=== PATIENT | female | born 1995 | race African-American/Black ===

== ENCOUNTER 2016-07-17 10:56 | Observation (INO) | payer SELFPAY ==
[~2016-07-17] VITALS: Ht 172.7 cm; Wt 68.0 kg
[2016-07-17] MEDS ORDERED: Dextrose 5%/Lactated Ringer's 1,000 ML IV SCH ×2 (11:15→20:30)
[2016-07-17] MEDS ORDERED: DiphenhydrAMINE 50mg/ml Inj IVP ONE (11:15)
[2016-07-17 11:42] LABS: MEAN CORPUSCULAR HEMOGLOBIN 26.1 PG (27.0-31.0); MEAN CORPUSCULAR VOLUME 84 FL (80-99); MEAN PLATELET VOLUME 7.5 FL (6.5-10.1); PLATELET COUNT 267 K/UL (150-450); RED BLOOD COUNT 4.78 M/UL (4.20-5.40); RED CELL DISTRIBUTION WIDTH 15.2 % (11.6-14.8); WHITE BLOOD COUNT 4.2 K/UL (4.8-10.8)
[2016-07-17 11:56] LABS: ALANINE AMINOTRANSFERASE 9 U/L (3-33); ALBUMIN/GLOBULIN RATIO 1.4 (1.0-2.7); ANION GAP 15 (5-15); ASPARTATE AMINO TRANSFERASE 21 U/L (5-40); CALCIUM 9.3 mg/dL (8.6-10.2); CARBON DIOXIDE 23 mEQ/L (20-30); CHLORIDE 96 mEQ/L (98-107); CREATININE 0.9 mg/dL (0.5-0.9); GLOMERULAR FILTRATION RATE > 60 mL/min (>60); HEMOLYSIS 96; POTASSIUM 4.5 mEQ/L (3.4-4.9); SODIUM 134 mEQ/L (135-145); TOTAL PROTEIN 7.3 g/dL (6.6-8.7); TROPONIN I < 0.30 ng/mL (<=0.30)
[2016-07-17 12:12] LABS: ANISOCYTOSIS 1+; BAND NEUTROPHILS % (MANUAL) 0 % (0-8); BASOPHILS % (MANUAL) 0 % (0-2); EOSINOPHILS % (MANUAL) 0 % (0-3); HYPOCHROMASIA 1+; LYMPHOCYTES % (MANUAL) 26 % (20-45); NEUTROPHILS % (MANUAL) 64 % (45-75); PLATELET ESTIMATE ADEQUATE; PLATELET MORPHOLOGY NORMAL; TOTAL CELLS COUNTED 100
[2016-07-17 12:15] VITALS: BP 111/57
[2016-07-17] MEDS ORDERED: Pyridoxine 50mg tab ORAL ONE (12:15)
[2016-07-17] MEDS ORDERED: NKM (12:32)
--- NOTE | 2016-07-17 13:03 | Emergency Room Report ---
History of Present Illness General Chief Complaint: Flu Like Symptoms Source: Patient, EMS Present Illness HPI Patient is a 20-year-old female who presented after increased vomiting. Patient had multiple episodes of vomiting for the past 2 weeks. Patient stated that she had been and is approximately 8 weeks. She reported having prior history of similar episodes of prior . She has not seen an OB/ FLIGHT SURVEYOR. The patient reports prior history of cardiac arrhythmia. She reports having multiple similar episodes. She denies any abdominal pain. She denies any fever. Allergies: Coded Allergies: No Known Allergies (Unverified , 07/17/16) Patient History Past Medical History: see triage record Last Menstrual Period: nov : 1 Para: 1 Reviewed Nursing Documentation: PMH: Agreed, PSxH: Agreed Nursing Documentation-PMH Past Medical History: No History, Except For Hx Cardiac Problems: Yes - arrhytmia Review of Systems All Other Systems: negative except mentioned in HPI Physical Exam Vital Signs Date Time Temp Pulse Resp B/P Pulse Ox O2 Delivery O2 Flow Rate FiO2 07/17/16 10:54 98.2 73 20 118/73 100 Room Air Sp02 EP Interpretation: reviewed, normal General Appearance: normal inspection, well appearing, no apparent distress, alert, GCS 15, non-toxic Head: atraumatic ENT: normal ENT inspection, hearing grossly normal, normal voice Neck: normal inspection, full range of motion, supple, no bony tend Respiratory: normal inspection, lungs clear, normal breath sounds, no respiratory distress, no retraction, no wheezing Cardiovascular #1: regular rate, rhythm, no edema Gastrointestinal: normal inspection, normal bowel sounds, non tender, soft, no guarding, no hernia Genitourinary: no CVA tenderness Musculoskeletal: normal inspection, back normal, normal range of motion Neurologic: normal inspection, alert, oriented x3, responsive, automotive software engineer III-XII nml as tested, DTRs symmetric, speech normal Psychiatric: normal inspection, judgement/insight normal, mood/affect normal Skin: normal inspection, normal color, no rash Medical Decision Making Diagnostic Impression: Primary Impression: Hyperemesis gravidarum Additional Impression: Bigeminy ER Course Patient presented for vomiting. Differential diagnosis included was not limited to cardiac arrhythmia, dehydration, hyperemesis, cyclic vomiting syndrome among others.Because of complexity of patient's case laboratory testing and imaging studies were ordered.The patient started on threat monitoring analyst. She was noted to have bigeminy with a rate of [address] or T wave changes noted. The patient started on IV fluids. Patient was given IV Rocephin for what appeared to be urinary tract infection. Pelvic ultrasound was noted to show intrauterine with a estimated gestational EGA of 7 weeks with heart tone. Patient was given IV magnesium which seem to reduce the patient's episodes of bigeminy. Dr. Jimenez was contacted for back shoe operator and agreed to be primary. Dr. Owen was contacted for internal medicine consult. Dr. Owen stated he will arrange internal controls consultant. The patient will be admitted for telemetry monitoring and IV hydration Labs Test 07/17/16 11:30 White Blood Count 4.2 K/UL (4.8-10.8) Red Blood Count 4.78 M/UL (4.20-5.40) Hemoglobin 12.5 G/DL (12.0-16.0) Hematocrit 40.3 % (37.0-47.0) Mean Corpuscular Volume 84 FL (80-99) Mean Corpuscular Hemoglobin 26.1 PG (27.0-31.0) Mean Corpuscular Hemoglobin Concent 31.0 G/DL (32.0-36.0) Red Cell Distribution Width 15.2 % (11.6-14.8) Platelet Count 267 K/UL (150-450) Mean Platelet Volume 7.5 FL (6.5-10.1) Neutrophils (%) (Auto) % (45.0-75.0) Lymphocytes (%) (Auto) % (20.0-45.0) Monocytes (%) (Auto) % (1.0-10.0) Eosinophils (%) (Auto) % (0.0-3.0) Basophils (%) (Auto) % (0.0-2.0) Differential Total Cells Counted 100 Neutrophils % (Manual) 64 % (45-75) Lymphocytes % (Manual) 26 % (20-45) Monocytes % (Manual) 10 % (1-10) Eosinophils % (Manual) 0 % (0-3) Basophils % (Manual) 0 % (0-2) Band Neutrophils 0 % (0-8) Platelet Estimate Adequate Platelet Morphology Normal Hypochromasia 1+ Anisocytosis 1+ Sodium Level 134 mEQ/L (135-145) Potassium Level 4.5 mEQ/L (3.4-4.9) Chloride Level 96 mEQ/L (98-107) Carbon Dioxide Level 23 mEQ/L (20-30) Anion Gap 15 (5-15) Blood Urea Nitrogen 9 mg/dL (7-23) Creatinine 0.9 mg/dL (0.5-0.9) Estimat Glomerular Filtration Rate > 60 mL/min (>60) Glucose Level 85 mg/dL (74-106) Calcium Level 9.3 mg/dL (8.6-10.2) Total Bilirubin 0.6 mg/dL (0.0-1.2) Aspartate Amino Transf (AST/SGOT) 21 U/L (5-40) Alanine Aminotransferase (ALT/SGPT) 9 U/L (3-33) Alkaline Phosphatase 53 U/L (35-104) Troponin I < 0.30 ng/mL (<=0.30) Total Protein 7.3 g/dL (6.6-8.7) Albumin 4.3 g/dL (3.5-5.2) Globulin 3.0 g/dL Albumin/Globulin Ratio 1.4 (1.0-2.7) Human Chorionic Gonadotropin, Qual Positive EKG Diagnostic Results Rate: other - bigeminy rate 79 ST Segments: no acute changes Last Vital Signs Date Time Temp Pulse Resp B/P Pulse Ox O2 Delivery O2 Flow Rate FiO2 07/17/16 12:15 97.0 78 12 111/57 100 Room Air Status: unchanged Disposition: ADMITTED INPATIENT Condition: Serious Referrals: NOT CHOSEN IPA/,REFERRING (PCP) Zbigniew Saavedra Jul 17, 2016 13:03
[2016-07-17 13:31] LABS: APPEARANCE,URINE SLIGHTLY CLOUDY; KETONES,URINE 3+ (NEGATIVE); LEUKOCYTE ESTERASE ,URINE 2+ (NEGATIVE); NITRITE,URINE NEGATIVE (NEGATIVE); PH,URINE 7 (4.5-8.0); PROTEIN,URINE 2+ (NEGATIVE); UROBILINOGEN,URINE 4 MG/DL (0.0-1.0)
[2016-07-17 13:40] LABS: BACTERIA,URINE MODERATE /HPF; RBC,URINE 0-2 /HPF (0 - 2); SQUAMOUS EPITHELIAL CELL,UR FEW /LPF (NONE/OCC); WBC,URINE 15-20 /HPF (0 - 2)
[2016-07-17 14:05] VITALS: BP 107/58
[2016-07-17 15:04] VITALS: BP 94/55
[2016-07-17 16:15] VITALS: BP 101/61
[2016-07-17 17:12] VITALS: BP 106/63
--- NOTE | 2016-07-17 17:50 | Cardiac Electrophysiology PN ---
Subjective Subjective [id number] Objective Last 24 Hour Vital Signs Date Time Temp Pulse Resp B/P Pulse Ox O2 Delivery O2 Flow Rate FiO2 07/17/16 17:12 97.5 78 20 106/63 98 Room Air 07/17/16 16:15 97.7 82 16 101/61 100 Room Air 07/17/16 16:08 97.4 81 14 106/53 100 Room Air 07/17/16 15:04 97.4 86 14 94/55 100 Room Air 07/17/16 14:05 82 12 107/58 100 Room Air 07/17/16 12:15 97.0 78 12 111/57 100 Room Air 07/17/16 11:45 72 14 Room Air 07/17/16 10:54 98.2 73 20 118/73 100 Room Air Laboratory Tests Test 07/17/16 11:30 07/17/16 13:10 White Blood Count 4.2 K/UL (4.8-10.8) L Red Blood Count 4.78 M/UL (4.20-5.40) Hemoglobin 12.5 G/DL (12.0-16.0) Hematocrit 40.3 % (37.0-47.0) Mean Corpuscular Volume 84 FL (80-99) Mean Corpuscular Hemoglobin 26.1 PG (27.0-31.0) L Mean Corpuscular Hemoglobin Concent 31.0 G/DL (32.0-36.0) L Red Cell Distribution Width 15.2 % (11.6-14.8) H Platelet Count 267 K/UL (150-450) Mean Platelet Volume 7.5 FL (6.5-10.1) Neutrophils (%) (Auto) % (45.0-75.0) Lymphocytes (%) (Auto) % (20.0-45.0) Monocytes (%) (Auto) % (1.0-10.0) Eosinophils (%) (Auto) % (0.0-3.0) Basophils (%) (Auto) % (0.0-2.0) Differential Total Cells Counted 100 Neutrophils % (Manual) 64 % (45-75) Lymphocytes % (Manual) 26 % (20-45) Monocytes % (Manual) 10 % (1-10) Eosinophils % (Manual) 0 % (0-3) Basophils % (Manual) 0 % (0-2) Band Neutrophils 0 % (0-8) Platelet Estimate Adequate Platelet Morphology Normal Hypochromasia 1+ Anisocytosis 1+ Sodium Level 134 mEQ/L (135-145) L Potassium Level 4.5 mEQ/L (3.4-4.9) Chloride Level 96 mEQ/L (98-107) L Carbon Dioxide Level 23 mEQ/L (20-30) Anion Gap 15 (5-15) Blood Urea Nitrogen 9 mg/dL (7-23) Creatinine 0.9 mg/dL (0.5-0.9) Estimat Glomerular Filtration Rate > 60 mL/min (>60) Glucose Level 85 mg/dL (74-106) Calcium Level 9.3 mg/dL (8.6-10.2) Total Bilirubin 0.6 mg/dL (0.0-1.2) Aspartate Amino Transf (AST/SGOT) 21 U/L (5-40) Alanine Aminotransferase (ALT/SGPT) 9 U/L (3-33) Alkaline Phosphatase 53 U/L (35-104) Troponin I < 0.30 ng/mL (<=0.30) Total Protein 7.3 g/dL (6.6-8.7) Albumin 4.3 g/dL (3.5-5.2) Globulin 3.0 g/dL Albumin/Globulin Ratio 1.4 (1.0-2.7) Human Chorionic Gonadotropin, Qual Positive Human Chorionic Gonadotropin, Quant 11650 mIU/mL Urine Color Yellow Urine Appearance Slightly cloudy Urine pH 7 (4.5-8.0) Urine Specific Baker 1.005 (1.005-1.035) Urine Protein 2+ (NEGATIVE) H Urine Glucose (UA) Negative (NEGATIVE) Urine Ketones 3+ (NEGATIVE) H Urine Occult Blood Negative (NEGATIVE) Urine Nitrite Negative (NEGATIVE) Urine Bilirubin Negative (NEGATIVE) Urine Urobilinogen 4 MG/DL (0.0-1.0) H Urine Leukocyte Esterase 2+ (NEGATIVE) H Urine RBC 0-2 /HPF (0 - 2) Urine WBC 15-20 /HPF (0 - 2) H Urine Squamous Epithelial Cells Few /LPF (NONE/OCC) Urine Bacteria Moderate /HPF (NONE) H Urine HCG, Qualitative Positive Urine Opiates Screen Negative (NEGATIVE) Urine Barbiturates Screen Negative (NEGATIVE) Phencyclidine (PCP) Screen Negative (NEGATIVE) Urine Amphetamines Screen Negative (NEGATIVE) Urine Benzodiazepines Screen Negative (NEGATIVE) Urine Cocaine Screen Negative (NEGATIVE) Urine Marijuana (THC) Screen Negative (NEGATIVE) CAM IBRAHIM Jul 17, 2016 17:50
[2016-07-17 18:31] LABS: MAGNESIUM 1.9 mg/dL (1.7-2.5); PHOSPHORUS 3.9 mg/dL (2.5-4.8)
[2016-07-17 20:00] VITALS: BP_SYST 106; BP_SYST 110; BP_DIAS 56; BP_DIAS 63
[2016-07-17] MEDS ORDERED: NS 55ml IV ONE (20:49)
--- NOTE | 2016-07-18 00:18 | Consultation ---
DATE OF CONSULTATION: CARDIOLOGY CONSULTATION REFERRING PHYSICIAN: Annabelle Owen M.D. REASON FOR CONSULTATION: Cardiac arrhythmias. HISTORY OF PRESENT ILLNESS: The patient is a 20-year-old female, who is 7 weeks , reports that the patient has increased vomiting and weakness that has been going on for the last couple of weeks. The patient reported that she has had similar episodes during her prior . The patient also has history of cardiac arrhythmia as well, but she does not take medication. The patient was admitted and the patient came to the emergency room, on telemetry was found to be in ventricular bigeminy, primarily her right ventricular outflow tract. Cardiology consultation was obtained for further evaluation and management. In the emergency room, the patient's blood pressure was 118/73 with a pulse of 73. PAST MEDICAL HISTORY: History of cardiac arrhythmia. SOCIAL HISTORY: She does not smoke or drink alcohol. FAMILY HISTORY: Noncontributory. REVIEW OF SYSTEMS: Review of systems was thoroughly performed and was negative other than what was mentioned in the history of present illness. PHYSICAL EXAMINATION: VITAL SIGNS: Blood pressure is 106/63, pulse 78, respirations 18, and temperature 97.5. HEAD AND NECK: Shows no JVD. LUNGS: Clear. CARDIOVASCULAR: Shows regular S1 and S2 with no gallop or murmur. ABDOMEN: Soft. EXTREMITIES: No pitting edema. LABORATORY AND DIAGNOSTIC DATA: Her EKG shows sinus rhythm with ventricular bigeminy. Her labs show white count of 4.3, hemoglobin 12, hematocrit 40, and platelet count is 267,000. Sodium 134, potassium 4.5, BUN of 9, creatinine 0.9, and glucose of 60. HCG is . Toxicology is negative. Urinalysis UTI. ASSESSMENT AND PLAN: 1. Ventricular bigeminy. The patient has had cardiac arrhythmia, but I do not know what is the nature of her arrhythmia. In the meantime, we will just watch the patient on telemetry and make sure she is not hypokalemic. I will check magnesium and phosphate for her and get an echocardiogram to evaluate for ejection fraction and wall motion abnormality. 2. Nausea and vomiting, could be part of her . Further evaluation by Gastroenterology. 3. . Pelvic ultrasound was obtained for intrauterine estimated 7 weeks with heart tone doctor. Thank you very much, Dr. Owen, for allowing me to participate in the care of this patient. Please do not hesitate to contact me for any questions regarding my evaluation. Jose Guerrero M.D. DR: PATRICIA JOB#: [id number] CC:
--- NOTE | 2016-07-19 20:33 | Cardiology Report ---
APPROVED REPORT EKG Measurement Heart [id number] Sinus rhythm with frequent premature ventricular complexes in a pattern of bigeminy Otherwise normal ECG
--- NOTE | 2016-07-24 14:56 | Diagnostic Imaging Report ---
Indication:. Pelvic pain Technique: Grayscale and duplex Doppler imaging of the pelvis performed utilizing a transabdominal scan and endovaginal scan. Comparison: None Findings: Single living intrauterine 7 weeks 2 days demonstrated based on crown-rump length. No sec demonstrated. Both ovaries are seen and appear normal. There is a subchorionic collection noted. Impression: Single living intrauterine 7 weeks 2 days gestational age. Small subchorionic bleed
== END 2016-07-17 20:50 | disposition left against medical advice (07) ==
LOC: EDBD 10:56 → EMR 11:29 → EDBEDREQ 14:54 → INTOOBSV 15:01 → 2E 15:01 → EDBEDREQ 16:07
DX: O21.0 Mild hyperemesis gravidarum (principal); O26.891 Other specified pregnancy related conditions, first trimester; R00.8 Other abnormalities of heart beat; O23.41 Unspecified infection of urinary tract in pregnancy, first trimester; Z3A.01 Less than 8 weeks gestation of pregnancy
CPT/HCPCS: 36415; 76801; 76830; 80053; 80300; 81001; 81025; 83735; 84100; 84484; 84702; 84703; 85007; 85025; 85379; 87086; J0696; 87181; 93005; G0378